=== PATIENT | male | born 1975 | race Hispanic/Latino ===

== ENCOUNTER 2024-09-25 14:33 | Emergency (ER) | payer BC, SELFPAY ==
[2024-09-25 14:35] VITALS: BP 159/110
[2024-09-25] MEDS: NSS 1000 IV (15:12)
[2024-09-25] MEDS: TORADOL 15 MG IV (15:12)
--- NOTE | 2024-09-25 15:17 | ED.GENMED ---
History of Present Illness
<Jessenia Rocha MD, Resident - Last Filed: 09/25/24 17:56>
General
Chief Complaint: Abdominal Pain
Source: patient
Exam Limitations: none
Time Seen by Provider: 09/25/24 14:59
Nursing documentation reviewed up to this point in time: agreed with
History of Present Illness
History of Present Illness:
49-year-old male with past medical history of nephrolithiasis and Graves' disease presents to the hospital for sudden onset acute left abdominal/flank pain. Initially about 2 to 3 weeks ago he developed dark-colored urine, his urine has been
alternating between dark color and bright red color since then, and is associated with symptoms of intermittent hesitancy, urgency and burning micturition that gradually worsened. He occasionally had episodes of dark-colored, tarry stools
intermittent episodes,-2-3 a week, not associated with constipation, diarrhea, hesitancy, urgency. Currently he describes his abdominal pain as sharp and shooting when it is 10/10 in intensity and throbbing pain when it is 4/10 in intensity.
He denies having any fevers, chills, nausea, vomiting, chest pain, shortness of breath, palpitations.
He had a similar episode in the past when he was diagnosed with renal stones.
If applicable-neuro sx onset
Onset of symptoms known: No
Time pt last seen normal is known: No
Past History
<Jessenia Rocha MD, Resident - Last Filed: 09/25/24 17:56>
Past History
ED Past Medical History: Other (Nephrolithiasis, Graves' disease.)
ED Past Surgical History: None
Social History
Tobacco: Smoker (1 pack a day since he is 16 years old.)
Alcohol: Daily (1 glass a day.)
Drug: None
Personal:
Living: with family
Family History
Family History: Other
Phy Exam
<Jessenia Rocha MD, Resident - Last Filed: 09/25/24 17:56>
General Physical Exam
General Presentation: mild distress
General Skin: warm
General Habitus: normal
General Mental: alert
General Hydration: appears well hydrated
Cardiovascular Exam
Cardiovascular Exam: regular rate/rhythm, no edema, no gallop, no murmur and normal peripheral pulses
Heart Sounds: normal
Pulmonary Exam
Pulmonary Exam: lungs clear, no respiratory distress, no rales, no crackles and no rhonchi
Gastrointestinal Exam
Gastrointestinal Exam: normal bowel sounds, non tender, soft, no pulsatile mass and non distended
Genitourinary Exam Male
Exam Male: no CVAT
Neurological Exam
Neurological Exam: alert, no motor deficits and normal reflexs
Course
<Jessenia Rocha MD, Resident - Last Filed: 09/25/24 17:56>
Orders/Labs/Results
Orders:
Orders
09/25/24 15:09
0.9% Sodium Chloride 1000 ml [Nss] 1,000 ml IV BOLUS
Ketorolac [Toradol] 15 mg IV NOW STA
09/25/24 15:10
CT Abd/pel Without Iv Or Oral Urgent
Comment:
Reason For Exam: left flank pain,c/f kidney stone
09/25/24 15:12
Complete Blood Count/With Diff Urgent
Comprehensive Metabolic Panel Urgent
Urinalysis Reflex To Culture Urgent
Date Specimen was Collected: 09/25/24
Time Specimen was Collected: 15:07
Urine Microscopic Reflex Cult Urgent
Urine Culture Urgent
HAWA Source: U
Specimen Description:
Date Specimen was Collected: 09/25/24
Time Specimen was Collected: 15:07
09/25/24 16:00
HYDROmorphone [Dilaudid] 0.5 mg IV NOW STA
09/25/24 17:11
CefTRIAXone [Rocephin] 1,000 mg IV NOW STA
Tamsulosin [Flomax] 0.4 mg PO NOW STA
Abnormal Lab Results
09/25/24
15:12
Abs Immat Gran (auto) 0.1 H 10^3/uL
(0-0.05)
Absolute Monos (auto) 0.7 H 10^3/uL
(0.1-0.6)
Immature Gran % 1.0 H %
(0-0.5)
Carbon Dioxide 21 L mmol/L
(22-30)
Glucose 126 H mg/dl
(70-99)
Urine Ketones Trace A
(Negative)
Ur Occult Blood Reflex 4+ A
(Negative)
Leukocyte Esterase Rfl Trace A
(Negative)
Urine RBC >100 A /HPF
(0-2)
Urine Bacteria (Reflex) Many A
(Negative)
Urine Albumin (Reflex) 2+ A
(Neg - Trace)
09/25/24 15:12
09/25/24 15:12
Vital Signs
Initial and Last Documented VS:
Initial Vital Signs
Temp Pulse Resp BP Pulse Ox
97.6 F 71 20 159/110 99
09/25/24 14:35 09/25/24 14:35 09/25/24 14:35 09/25/24 14:35 09/25/24 14:35
Last Documented Vital Signs
Temp Pulse Resp BP Pulse Ox
97.6 F 77 18 152/88 99
09/25/24 14:35 09/25/24 16:40 09/25/24 16:40 09/25/24 16:40 09/25/24 16:40
<Landon Tavares MD - Last Filed: 09/25/24 17:17>
Orders/Labs/Results
Orders:
Orders
09/25/24 15:09
0.9% Sodium Chloride 1000 ml [Nss] 1,000 ml IV BOLUS
Ketorolac [Toradol] 15 mg IV NOW STA
09/25/24 15:10
CT Abd/pel Without Iv Or Oral Urgent
Comment:
Reason For Exam: left flank pain,c/f kidney stone
09/25/24 15:12
Complete Blood Count/With Diff Urgent
Comprehensive Metabolic Panel Urgent
Urinalysis Reflex To Culture Urgent
Date Specimen was Collected: 09/25/24
Time Specimen was Collected: 15:07
Urine Microscopic Reflex Cult Urgent
Urine Culture Urgent
HAWA Source: U
Specimen Description:
Date Specimen was Collected: 09/25/24
Time Specimen was Collected: 15:07
09/25/24 16:00
HYDROmorphone [Dilaudid] 0.5 mg IV NOW STA
09/25/24 17:11
CefTRIAXone [Rocephin] 1,000 mg IV NOW STA
Tamsulosin [Flomax] 0.4 mg PO NOW STA
Abnormal Lab Results
09/25/24
15:12
Abs Immat Gran (auto) 0.1 H 10^3/uL
(0-0.05)
Absolute Monos (auto) 0.7 H 10^3/uL
(0.1-0.6)
Immature Gran % 1.0 H %
(0-0.5)
Carbon Dioxide 21 L mmol/L
(22-30)
Glucose 126 H mg/dl
(70-99)
Urine Ketones Trace A
(Negative)
Ur Occult Blood Reflex 4+ A
(Negative)
Leukocyte Esterase Rfl Trace A
(Negative)
Urine RBC >100 A /HPF
(0-2)
Urine Bacteria (Reflex) Many A
(Negative)
Urine Albumin (Reflex) 2+ A
(Neg - Trace)
09/25/24 15:12
09/25/24 15:12
Vital Signs
Initial and Last Documented VS:
Initial Vital Signs
Temp Pulse Resp BP Pulse Ox
97.6 F 71 20 159/110 99
09/25/24 14:35 09/25/24 14:35 09/25/24 14:35 09/25/24 14:35 09/25/24 14:35
Last Documented Vital Signs
Temp Pulse Resp BP Pulse Ox
97.6 F 77 18 152/88 99
09/25/24 14:35 09/25/24 16:40 09/25/24 16:40 09/25/24 16:40 09/25/24 16:40
<Jessenia Rocha MD, Resident - Last Filed: 09/25/24 17:56>
*Critical Care Note
Total Time (30-74mins, 75-104mins- exclusive of procedures): Not Applicable
<Jessenia Rocha MD, Resident - Last Filed: 09/25/24 17:56>
Update Note
Update Note:
Patient's abdominal pain improved with the pain medication and hydration.
CBC and CMP unremarkable. Urine analysis was positive for blood, bacteria and no pyuria-no squamous cells. UA concerning for infection. Patient does not meet sepsis criteria.
CT abdomen and pelvis evidence for renal calculi and mild hydroureteronephrosis on the left side - 3mm, Obstructing.
ED Attending Note
<Jessenia Rocha MD, Resident - Last Filed: 09/25/24 17:56>
-
Portions of this chart may have been created with voice recognition software.� Occasional wrong word or��sound alike� substitutions may have occurred due to the inherent limitations of voice recognition software.
<Landon Tavares MD - Last Filed: 09/25/24 17:17>
ED Attending Note
Patient seen and examined by attending physician: Yes
I performed a history and physical exam of patient and discussed management with resident, I reviewed resident's note and agree with documented findings and plan of care.: Yes
ED Attending Note:
I have seen and evaluated the patient with a [id number] encounter. I have spoken to the resident and involved in the medical history, the physical exam, medical decision making.
Evaluation and management service: agree unless noted differently below.
Results interpretation: agree unless noted differently below.
Focused HPI: 49-year-old male with past medical history as noted presents to the ER for evaluation of flank pain. Patient reports onset of symptoms a few hours prior to arrival and they have been constant although intensity waxing waning since that
time. He reports pain in the left flank radiates towards the left lateral abdomen. No clear triggering or relieving factors noted. He reports associated dark urine�in fact dark urine has been been off and on for the past 2 weeks. He denies any
nausea or vomiting. He denies any constipation has had some loose stools recently. He also reports off-and-on dark stools for the past few weeks. Denies any fevers or chills. He says he has had similar pains with kidney stones in the past.
Physical exam: Awake alert not in distress. Hypertensive otherwise normal vitals. Abdomen soft nontender with no abdominal masses. No CVA tenderness. Lungs clear to auscultation bilaterally. Rectal exam no stool in rectal vault but no blood
noted either, no masses or hemorrhoids noted.
Medical Decision Makin-year-old male presents for evaluation of left flank pain and dark urine similar to prior kidney stones. Has also had occasional dark stools over the past 2 weeks that he says has been an off-and-on issue. Hypertensive
otherwise normal vitals. Exam as above. Check labs including a CBC and a CMP, urinalysis. Will check CT abdomen pelvis. Provide fluids and pain control. Reassess after the above.
CT shows 3 mm obstructive stone in the distal left ureter. CBC unremarkable, CMP shows acceptable creatinine. Urinalysis was abnormal positive for blood also showed positive bacteria but no significant pyuria; no squamous cells. UA borderline for
infection; certainly patient does not appear septic has not had any fever, afebrile here and normal WBC. He has however had some urinary symptoms over the past 2 weeks that preceded onset of pain. Given this fact with abnormal UA and now
obstructive kidney stone I did discuss the case with urology. Possible urinary symptoms are related to early symptoms of stone passage. They recommended covering with antibiotics in an abundance of caution but with good pain control here and
stable vitals reasonable to discharge for trial of passage. Patient very comfortable with this plan. We spoke in detail about return precautions including any fever, chills, uncontrolled pain or worsening symptoms. All questions answered.
Discharge Plan
Departure
Patient Disposition: Home (Routine Discharge)
Date of Disposition: 09/25/24
Time of Disposition: 17:12
Patient with high blood pressure during this ER visit?: Yes
Discharge Problem:
Left nephrolithiasis
Instructions: Kidney Stones (DC)
Prescriptions:
New
oxycodone 5 mg tablet
5 mg PO TID PRN (Reason: Pain) Qty: 10 0RF
tamsulosin [Flomax] 0.4 mg capsule
0.4 mg PO DAILY Qty: 10 0RF
cefdinir 300 mg capsule
300 mg PO BID 7 Days Qty: 14 0RF
Referrals:
Roberth Arguelles MD [Active] - Call in 1-3 days for appt
Activity Restrictions/Additional Instructions:
You were diagnosed with a kidney stone here in the emergency room. You are prescribed medications which she should take as prescribed�these include an antibiotic which you should take for the next week as well as a medicine called Flomax to help
you pass the kidney stone. For pain you should take the following:
ibuprofen 600 mg every 6 hours as needed for pain
acetaminophen 1,000 mg every 6 hours as needed for pain
oxycodone 5 mg every 8 hours ONLY NEEDED if above medications do not provide adequate pain control
You should call to schedule follow-up with the urologist within the next week. If you notice any fever or chills, if your pain is uncontrolled, or if you develop any new symptoms that are concerning to you you must immediately return to the
emergency room.
Thank you for visiting the Emergency Department at [facility].
1. Please schedule a follow up appointment as directed. Call first thing tomorrow morning to make an appointment.
2. If indicated, please take your medications as instructed and indicated on discharge paperwork.
3. If any of your symptoms do not improve, or persist, or become more severe within 6-12 hours, please return to the emergency department for further care.
4. Please return to the emergency department if you develop a headache, neck pain/stiffness, fever greater than 100.4F, chest pain, shortness of breath, persistent nausea, vomiting, slurred speech, difficulty walking, numbness/tingling, weakness,
signs of infection or any other symptoms that are worrisome to you.
Please call [phone] if you have any questions.
Interventions
Interventions:
*General Assessment Last Done: 09/25/24 14:35
ED- Fall Risk Assessment Last Done: 09/25/24 14:43
[id number] Assessment Last Done: 09/25/24 14:43
Discharge Date and Time
Print Language: EQUATORIAL GUINEAN
[2024-09-25 15:27] LABS: % Basophils 0.5 % (0-2); % Eosinophils 1.8 % (0-6); % Lymphocytes 30.9 % (20.5-51.1); % Monocytes 7.4 % (1.7-9.3); % Neutrophils 58.4 % (42.2-75.2); Absolute Basophils 0.1 10^3/uL (0-0.2); Absolute Eosinophils 0.2 10^3/uL (0-0.7); Absolute Immature Granulocytes 0.1 10^3/uL (0-0.05); Absolute Lymphocytes 2.9 10^3/uL (1.2-3.4); Absolute Monocytes 0.7 10^3/uL (0.1-0.6); Absolute Neutrophils 5.5 10^3/uL (1.4-6.5); Hematocrit 44.6 % (39.0-52.0); Hemoglobin 15.5 g/dL (13.0-18.0); Mean Corp Hgb Conc. 34.8 g/dL (33.0-37.0); Mean Corpuscular Hgb 29.4 pg (27.0-31.0); Mean Corpuscular Volume 84.5 fL (80.0-94.0); Mean Platelet Volume 9.6 fL (7.4-10.4); Nucleated Red Blood Cells % 0 % (-); Platelet Count 245 10^3/uL (130-400); Red Blood Cell Count 5.28 10^6/uL (4.70-6.10); Red Cell Dist. Width 12.9 % (11.5-14.5); White Blood Cell Count 9.4 10^3/uL (4.8-10.8)
[2024-09-25 15:39] LABS: ALT (SGPT) 39 U/L (0-50); AST (SGOT) 31 U/L (17-59); Albumin 4.4 g/dl (3.5-5.0); Alkaline Phosphatase 85 U/L (38-126); Blood Urea Nitrogen 16 mg/dl (9-20); Calcium 9.1 mg/dl (8.4-10.2); Carbon Dioxide 21 mmol/L (22-30); Chloride 102 mmol/L (98-107); Glucose 126 mg/dl (70-99); Potassium 4.3 mmol/L (3.5-5.1); Sodium 138 mmol/L (135-145); Total Bilirubin 0.5 mg/dl (0.2-1.3); Total Protein 7.4 g/dl (6.3-8.2); eGFR > 60.00
[2024-09-25 15:41] LABS: Urine Albumin 2+ (Neg - Trace); Urine Bilirubin Negative (Negative); Urine Character Slightly Cloudy (Clear); Urine Color Brown; Urine Glucose Negative (Negative); Urine Ketone Trace (Negative); Urine Leukocyte Trace (Negative); Urine Nitrite Negative (Negative); Urine Occult Blood 4+ (Negative); Urine Urobilinogen Negative (Neg - 1+)
[2024-09-25 15:58] LABS: Urine Bacteria Many (Negative); Urine Red Blood Cell >100 /HPF (0-2); Urine White Cell 0-2 /HPF (0-5)
[2024-09-25] MEDS: DILAUDID 0.5 MG IV (16:13)
[2024-09-25 16:40] VITALS: BP 152/88
[2024-09-25] MEDS: ROCEPHIN 1000 MG IV (17:40)
[2024-09-25] MEDS: FLOMAX 0.4 MG PO (17:40)
== END 2024-09-25 18:09 | disposition home or self-care (01) ==
LOC: EMR 14:33
PROVIDERS: EMERGENCY PHYSICIAN Emergency Medicine
DX: N20.0 Calculus of kidney (principal); F17.210 Nicotine dependence, cigarettes, uncomplicated
CPT/HCPCS: 99284; 96374; 96375; 96361; 74176; 80053; 81003; 81015; 85025; 87086